=== PATIENT | female | born 1990 | race African-American/Black ===

== ENCOUNTER 2024-03-03 14:00 | Emergency (ER) | payer MEDICAID ==
[~2024-03-03] VITALS: Ht 177.8 cm; Wt 54.9 kg
[2024-03-03 14:05] VITALS: O2SAT 100
== END 2024-03-03 14:35 | disposition left against medical advice (07) ==
LOC: ER 14:00
DX: R10.2 Pelvic and perineal pain (principal); Z53.21 Procedure and treatment not carried out due to patient leaving prior to being seen by health care provider
CPT/HCPCS: A4606; A4663